=== PATIENT | female | born 1980 | race Caucasian/White ===

== ENCOUNTER 2017-06-12 15:33 | Emergency (ER) | payer OTHER ==
[2017-06-12 16:12] VITALS: BP 146/90
--- NOTE | 2017-06-12 17:21 | UC ---
Throat Pain/Nasal Timbo HPI - HPI Summary HPI Summary: Pt presents with c/o nasal congestion, generalized malaise, nasal congestion sinus pressure and pain X 2 weeks. - History of Current Complaint Chief Complaint: UCRespiratory Stated Complaint: COLD SYMPTOMS Time Seen by Provider: 06/12/17 17:06 Hx Obtained From: Patient Hx Last Menstrual Period: 05/07/14 ?: No - pt is breasfeeding Onset/Duration: Gradual Onset, Lasting Weeks, Still Present Severity: Mild Associated Signs & Symptoms: Positive: Dysphagia, Sinus Discomfort - Epiglottits Risk Factors Epiglottis Risk Factors: Negative - Allergies/Home Medications Allergies/Adverse Reactions: Allergies Allergy/AdvReac Type Severity Reaction Status Date / Time No Known Allergies Allergy Verified 06/12/17 16:00 PMH/Surg Hx/FS Hx/Imm Hx Previously Healthy: Yes - Surgical History Surgical History: Yes Surgery Procedure, Year, and Place: LEEP, 2011 2012 2016. Hysterectomy 2016 - Family History Known Family History: Positive: Cardiac Disease - Social History Occupation: Employed Full-time - [employer] Lives: With Family Alcohol Use: None Substance Use Type: None Smoking Status (MU): Never Smoked Tobacco Have You Smoked in the Last Year: No - Immunization History Most Recent Influenza Vaccination: July 2014 Most Recent Tetanus Shot: 10/08/12 Review of Systems Constitutional: Negative Skin: Negative Eyes: Negative ENT: Sinus Congestion, Sinus Pain/Tenderness, Other - nasal congestion Respiratory: Negative Cardiovascular: Negative Gastrointestinal: Negative Genitourinary: Negative Motor: Negative Neurovascular: Negative Musculoskeletal: Negative Neurological: Headache Psychological: Negative Is Patient Immunocompromised?: No All Other Systems Reviewed And Are Negative: Yes Physical Exam Triage Information Reviewed: Yes Appearance: Ill-Appearing Vital Signs: Initial Vital Signs Temp 98.2 F 06/12/17 15:54 Pulse 111 06/12/17 15:54 Resp 16 06/12/17 15:54 BP 146/90 06/12/17 15:54 Pulse Ox 98 06/12/17 15:54 Vital Signs Reviewed: Yes Eye Exam: Normal ENT: Positive: Nasal congestion, Other: - sinus tenderness, maxillary and frontal Neck exam: Normal Respiratory Exam: Normal Cardiovascular Exam: Normal Musculoskeletal Exam: Normal Neurological Exam: Normal Psychological Exam: Normal Skin Exam: Normal Throat Pain/Nasal Course/Dx - Differential Dx/Diagnosis Differential Diagnosis/HQI/PQRI: Sinusitis, URI Provider Diagnoses: sinusitis Discharge - Discharge Plan Condition: Stable Disposition: HOME Prescriptions: Amoxicillin PO (*) [Amoxicillin 875 MG (*)] 875 mg PO Q12H #20 tab Patient Education Materials: Sinusitis (ED) Referrals: Kacy Chilel PA [Primary Care Provider] -
== END 2017-06-12 17:34 | disposition home or self-care (01) ==
LOC: UCCORT 15:33
DX: J32.9 Chronic sinusitis, unspecified (principal)
CPT/HCPCS: 99212; G0463

== ENCOUNTER 2017-09-18 13:18 | Emergency (ER) | payer OTHER ==
[2017-09-18 16:09] VITALS: BP 151/89
--- NOTE | 2017-09-18 16:28 | UC ---
Throat Pain/Nasal Timbo HPI - HPI Summary HPI Summary: 37 y/o female presents to the urgent care c/o sore throat for the past 2 days. Pt also reports Mild nasal congestion,+PND and mild cough this morning. Pt states her and daughter have the flu. Pt has taking Advil 400mg PO to alleviate symptoms. Pain w/ swallowing is 7/10. Pt denies SOB, wheezing, fever , chills, chest pain, abdominal pain, N/V/D - History of Current Complaint Chief Complaint: UCRespiratory Stated Complaint: SORE THROAT Time Seen by Provider: 09/18/17 16:18 Hx Obtained From: Patient Hx Last Menstrual Period: 05/07/14 ?: No Onset/Duration: Gradual Onset, Lasting Days - 2 days, Still Present, Worse Since - this morning Severity: Moderate Pain Intensity: 6 Pain Scale Used: 0-10 Numeric Cough: Nonproductive Associated Signs & Symptoms: Positive: Dysphagia, Nasal Discharge - Epiglottits Risk Factors Epiglottis Risk Factors: Negative - Allergies/Home Medications Allergies/Adverse Reactions: Allergies Allergy/AdvReac Type Severity Reaction Status Date / Time Labetalol Allergy Unknown Verified 09/18/17 16:03 Reaction Details PMH/Surg Hx/FS Hx/Imm Hx Previously Healthy: Yes - Pt denies PMHX - Surgical History Surgical History: Yes Surgery Procedure, Year, and Place: LEEP, 2011 2012. Hysterectomy Jun 2017 - Family History Known Family History: Positive: Cardiac Disease, Hypertension - Social History Occupation: Employed Full-time Lives: With Family Alcohol Use: None Substance Use Type: None Smoking Status (MU): Former Smoker Have You Smoked in the Last Year: No When Did the Patient Quit Smoking/Using Tobacco: 2013 - Immunization History Most Recent Influenza Vaccination: July 2014 Most Recent Tetanus Shot: 10/08/12 Review of Systems Constitutional: Negative Skin: Negative Eyes: Negative ENT: Sore Throat, Nasal Discharge Respiratory: Cough - dry Cardiovascular: Negative Gastrointestinal: Negative Genitourinary: Negative Motor: Negative Neurovascular: Negative Musculoskeletal: Negative Neurological: Negative Psychological: Negative Is Patient Immunocompromised?: No All Other Systems Reviewed And Are Negative: Yes Physical Exam Triage Information Reviewed: Yes Vital Signs: Initial Vital Signs Temp 99.9 F 09/18/17 16:03 Pulse 85 09/18/17 16:03 Resp 16 09/18/17 16:03 BP 151/89 09/18/17 16:03 Pulse Ox 95 09/18/17 16:03 - Additional Comments VITAL SIGNS: Reviewed. GENERAL: Patient is a well developed and nourished who is sitting comfortable in the examining table. Patient is not in any acute respiratory distress. HEAD AND FACE: No signs of trauma. No ecchymosis, hematomas or skull depressions. No sinus tenderness. edematous erythematous nasal mucosa with yellowish discharge, EYES: PERRLA, EOMI x 2, No injected conjunctiva, clear watery eyes, no nystagmus. No photophobia. EARS: Hearing grossly intact. Ear canals and tympanic membranes are within normal limits. MOUTH: Positive pharynx with erythema, no exudates,no palatal petechiae. no B/L tonsillar enlargement Uvula in midline. NECK: Supple, trachea is midline, Positive anterior cervical lymphadenopathy, no JVD, no carotid bruit, no c-spine tenderness, neck with full ROM. No meningeal signs, no Kernig's or brudzinskis signs. CHEST: Symmetric, no tenderness at palpation LUNGS: Clear to auscultation bilaterally. No wheezing or crackles. CVS: Regular rate and rhythm, S1 and S2 present, no murmurs or gallops appreciated. ABDOMEN: Soft, non-tender. No signs of distention. No rebound no guarding, and no masses palpated. Bowel sounds are normal. EXTREMITIES: FROM in all major joints, no edema, no cyanosis or clubbing. NEURO: Alert and oriented x 3. No acute neurological deficits. Speech is normal and follows commands. SKIN: Dry and warm Throat Pain/Nasal Course/Dx - Course Course Of Treatment: 37 y/o female presents to the urgent care c/o sore throat for the past 2 days. Pt also reports Mild nasal congestion,+PND and mild cough this morning. Pt states her and daughter have the flu. Pt has taking Advil 400mg PO to alleviate symptoms. Pain w/ swallowing is 7/10. Pt denies fever, chills, SOB, wheezing, chest pain, abdominal pain, N/V/D. Hx obtained. Pt with pharyngitis on examination. Rapid strep ordered, result: negative.Influenza A&B ordered: result:Negative. Pt Rx ibuprofen PO to alleviates symptoms. Advised on hand washing. Pt advised to rest, increase fluid intake, eat well and avoid strenuous exercise. If symptoms do not improve or worsen advised to return to the urgent care or f/u with her PCP for further evaluation and treatment. Pt's BP is elevated today advised to decrease salt in diet, monitor BP and f/u with PCP for further management. Pt understood and agreed with plan of care. - Differential Dx/Diagnosis Differential Diagnosis/HQI/PQRI: Influenza, Laryngitis, Mononucleosis, Pharyngitis, Sinusitis, Tonsillitis, URI Provider Diagnoses: 1- Viral pharyngitis. 2- Elevated BP w/o Hx of HTN Discharge - Discharge Plan Condition: Stable Disposition: HOME Prescriptions: Ibuprofen TAB* [Motrin TAB* 800 MG] 800 mg PO Q6H PRN #20 tab PRN Reason: Sore Throat Patient Education Materials: Pharyngitis (ED), Low-Sodium Diet (ED) Referrals: Kacy Chilel PA [Primary Care Provider] - 3 Days Additional Instructions: 1-Please take ibuprofen PO q6-8hrs prn as instructed after meals to alleviate pain and swelling. Increase fluid intake, eat well, rest and avoid strenuous exercise 2-If symptoms do not improve or worsen please return to the urgent care or f/u with your PCP for further evaluation and treatment. 3-Your BP is elevated today. please decrease salt in your diet, monitor BP and if it continues to be elevated please f/u with your PCP for further management
== END 2017-09-18 17:04 | disposition home or self-care (01) ==
LOC: UCCORT 13:18
DX: J02.8 Acute pharyngitis due to other specified organisms (principal); R03.0 Elevated blood-pressure reading, without diagnosis of hypertension; Z87.891 Personal history of nicotine dependence
CPT/HCPCS: 87502; 87651; 99212; G0463

== ENCOUNTER 2018-11-01 09:00 | Emergency (ER) | payer BC, OTHER ==
--- NOTE | 2018-11-01 10:59 | UC ---
UC General HPI - HPI Summary HPI Summary: 2.5 day hx burning sore throat that radiates into her lungs. - History of Current Complaint Stated Complaint: SORE THROAT CONGESTION Time Seen by Provider: 11/01/18 10:48 Hx Obtained From: Patient Hx Last Menstrual Period: 05/07/14 Onset/Duration: Gradual Onset Timing: Constant Associated Signs & Symptoms: Positive: Cough, Fever. Negative: Abdominal Pain, Diarrhea, SOB, Vomiting - Allergy/Home Medications Allergies/Adverse Reactions: Allergies Allergy/AdvReac Type Severity Reaction Status Date / Time labetalol Allergy Severe Unknown Verified 11/01/18 10:59 Reaction Details PMH/Surg Hx/FS Hx/Imm Hx Previously Healthy: Yes - Surgical History Surgical History: Yes Surgery Procedure, Year, and Place: LEEP, 2011 2012. Hysterectomy Jun 2017 - Family History Known Family History: Positive: Cardiac Disease, Hypertension - Social History Lives: With Family Alcohol Use: None Substance Use Type: None Smoking Status (MU): Former Smoker Have You Smoked in the Last Year: No When Did the Patient Quit Smoking/Using Tobacco: 2013 - Immunization History Most Recent Influenza Vaccination: July 2014 Most Recent Tetanus Shot: 10/08/12 Vaccination Up to Date: Yes Review of Systems All Other Systems Reviewed And Are Negative: Yes Constitutional: Positive: Fever, Chills ENT: Positive: Sore Throat Respiratory: Positive: Cough Physical Exam Triage Information Reviewed: Yes Appearance: Well-Appearing Vital Signs Reviewed: Yes Eyes: Positive: Conjunctiva Clear ENT: Positive: Pharyngeal erythema, TMs normal, Uvula midline - but mild to moderate swelling with erythema. Negative: Nasal congestion, Nasal drainage, Trismus, Muffled voice, Hoarse voice Neck: Positive: Supple, Nontender, Enlarged Nodes @ - peritonsilar Respiratory: Positive: Lungs clear, Normal breath sounds, No respiratory distress Cardiovascular: Positive: RRR, No Murmur Abdomen Description: Positive: Nontender, No Organomegaly, Soft Bowel Sounds: Positive: Present Musculoskeletal: Positive: ROM Intact Neurological: Positive: Alert Psychological: Positive: Age Appropriate Behavior Skin Exam: Normal Course/Dx - Course Course Of Treatment: rapid strep=NEG - Differential Dx - Multi-Symptom Differential Diagnoses: Other - no concern for peritonsil/retropharyngeal abscess. uvulitis on exam thus will cover for presumptive bacterial infection and steroid. - Diagnoses Provider Diagnosis: Uvulitis Discharge - Sign-Out/Discharge Documenting (check all that apply): Patient Departure All imaging exams completed and their final reports reviewed: No Studies - Discharge Plan Condition: Stable Disposition: HOME Prescriptions: Amoxicillin/Clavulanate TAB* [Augmentin TAB 875*] 875 mg PO BID 10 Days #20 tab Patient Education Materials: Uvulitis (ED) Referrals: Kacy Chilel PA [Primary Care Provider] - 3 Days - Billing Disposition and Condition Condition: STABLE Disposition: Home
[2018-11-01 11:04] VITALS: BP 145/82
[2018-11-01] MEDS ORDERED: Dexamethasone IV* 4 MG/ML 1 ML (4 MG) PO ONE (11:11)
== END 2018-11-01 11:37 | disposition home or self-care (01) ==
LOC: UCCORT 09:00
DX: K12.2 Cellulitis and abscess of mouth (principal); Z88.8 Allergy status to other drugs, medicaments and biological substances; Z87.891 Personal history of nicotine dependence
CPT/HCPCS: 87070; 87651; 99212; G0463; J1100

== ENCOUNTER 2023-07-03 08:20 | Observation (INO) ==
[2023-07-03 09:23] LABS: ABS Basophils 0.1 10^3/uL (0.0-0.1); ABS Eosinophils 0.2 10^3/uL (0.0-0.5); ABS Lymphocytes 2.6 10^3/uL (1.0-4.8); ABS Monocytes 0.4 10^3/uL (0.0-0.9); ABS Neutrophils 6.2 10^3/uL (1.5-7.6); ABS Nucleated RBC 0.01 10^3/ul; Eosinophil % 2.5 %; Hematocrit 46.2 % (35-45); Hemoglobin 15.7 g/dL (11.5-14.3); Lymphocyte % 27.4 %; Mean Corpuscular Hemoglobin 31.3 pg (27-33); Mean Platelet Volume 9.5 fL (7.5-11.2); Nucleated Red Blood Cells % 0.1 %/100WBC (0.0-0.8); Platelet Count 277 10^3/uL (150-450); Red Blood Count 5.03 10^6/uL (3.63-4.92); Red Cell Distribution Width 12.8 % (12-17); White Blood Count 9.6 10^3/uL (3.8-11.8)
[2023-07-03 09:49] LABS: Albumin 4.3 g/dL (3.2-5.2); Albumin/Globulin Ratio 1.3 (1-3); Calcium 9.5 mg/dL (8.6-10.3); Creatinine, Serum 0.78 mg/dL (0.51-0.95); Direct Bilirubin 0.1 mg/dL (0.03-0.18); Globulin 3.2 g/dL (2-4); HDL Cholesterol 44.4 mg/dL; Indirect Bilirubin 0.6 mg/dL (0.3-1.0); Total Bilirubin 0.7 mg/dL (0.2-1.0); Total Protein 7.5 g/dL (6.4-8.9); eGFR CKD-EPI 96.6 (>60)
[2023-07-03] MEDS ORDERED: Iohexol 350 (CONTRAST) 500 ML MDV IV ONE (10:22)
[2023-07-03 10:32] LABS: Activated Partial Thrombo Time 30.2 seconds (26.0-38.0); INR 1.12 (0.83-1.13)
[2023-07-03] MEDS ORDERED: LORazepam 2 mg VIAL 1 ml ONE (10:46)
[2023-07-03 11:05] LABS: High Sensitivity Troponin 1 Hr 3 pg/mL (<15)
[2023-07-03 11:26] LABS: Urine Appearance Clear; Urine Bilirubin Negative (Negative); Urine Blood Negative (Negative); Urine Color Yellow; Urine Glucose Negative (Negative); Urine Ketones Negative (Negative); Urine Nitrite Negative (Negative); Urine Protein 1+(30 mg/dL) (Negative); Urine Specific Gravity 1.042 (1.002-1.030); Urine Urobilinogen Negative (Negative)
[2023-07-03 11:36] LABS: Urine Bacteria Absent (Absent); Urine Red Blood Cell 1+(3-5/hpf) (Absent); Urine Squamous Epithelial Cell Present (Absent); Urine White Blood Cell Trace(0-5/hpf) (Absent)
[2023-07-03] MEDS ORDERED: Lactated Ringers 1000 ml BAG 1,000 ML IV ONE ×2 (12:06→13:39)
[2023-07-03] MEDS ORDERED: Enoxaparin 40 MG/0.4 ML SYR SUBCUT SCH (14:00)
[2023-07-03] MEDS ORDERED: Magnesium Sulfate 2 gm BAG 2 GM/50 ML BAG IVPB ONE (17:55)
[2023-07-03 18:15] LABS: Magnesium 1.8 mg/dL (1.9-2.7)
[2023-07-03 18:19] LABS: Erythrocyte Sed Rate 14 mm/Hr (0-19)
[2023-07-03 18:31] LABS: Urine Benzodiazepine Screen None Detected (None Detect); Urine Cannabinoids Screen None Detected (None Detect); Urine Opiates Screen None Detected (None Detect)
[2023-07-03 18:49] LABS: TSH Ultra Thyroid Stim Horm 0.7 mcIU/mL (0.34-5.60)
[2023-07-03 18:51] LABS: Free T4 0.93 ng/dL (0.61-1.12)
[2023-07-04] MEDS ORDERED: Fluticasone NASAL SPRAY 50MCG 16 gm SPRAY BTL BOTH NARES SCH (09:00)
[2023-07-04 10:40] LABS: Hematocrit 44.3 % (35-45); Hemoglobin 15.2 g/dL (11.5-14.3)
[2023-07-04 11:50] VITALS: BP 158/93
== END 2023-07-04 13:19 | disposition home or self-care (01) ==
LOC: ED 08:20 → EDHOLD 08:20 → SUATTDRO 13:04 → MEDTELE 21:37
PROVIDERS: ADMIT Student in an Organized Health Care Education/Training Program; ATTEND Hospitalist